=== PATIENT | male | born 1955 | race Two or more races ===

== ENCOUNTER 2025-05-17 10:03 | Outpatient (CLI) | payer OTHER | END 2025-05-17 10:29 | disposition home or self-care (01) | LOC: RAD 10:03 | PROVIDERS: ATTEND Internal Medicine Cardiovascular Disease | DX: R00.2 Palpitations (principal); C62.90 Malignant neoplasm of unspecified testis, unspecified whether descended or undescended ==

== ENCOUNTER 2025-05-31 10:35 | Outpatient (CLI) | payer OTHER | END 2025-05-31 10:37 | disposition home or self-care (01) | LOC: SONOGRAMA 10:35 | PROVIDERS: ATTEND Pediatrics | DX: I70.1 Atherosclerosis of renal artery (principal); I10 Essential (primary) hypertension; N20.0 Calculus of kidney ==